=== PATIENT | female | born 1975 | race Caucasian/White ===

== ENCOUNTER 2022-10-18 05:50 | Day surgery (SDC) | payer MEDICAID ==
[~2022-10-18] VITALS: Ht 172.7 cm; Wt 97.5 kg
[2022-10-18] MEDS ORDERED: fentaNYL CITRATE/PF 100 MCG/2 ML AMP ONE ×2 (07:46→08:10)
[2022-10-18] MEDS ORDERED: MIDAZOLAM HCL 5 MG/5 ML VIAL ONE ×2 (07:47→08:10)
[2022-10-18] MEDS ORDERED: SIMETHICONE 40 MG/0.6 ML ML ONE (07:51)
[2022-10-18] MEDS ORDERED: DIPHENHYDRAMINE INJ 50 MG/ML VIAL ONE (08:10)
[2022-10-18 15:12] VITALS: BP_SYST 133
== END 2022-10-18 09:30 | disposition home or self-care (01) ==
LOC: SDS 05:50 → SMU 05:50 → SDS 09:30
PROVIDERS: ATTEND Internal Medicine
DX: R19.4 Change in bowel habit (principal); R14.0 Abdominal distension (gaseous); D12.2 Benign neoplasm of ascending colon; K29.50 Unspecified chronic gastritis without bleeding; K64.8 Other hemorrhoids; K20.90 Esophagitis, unspecified without bleeding; I10 Essential (primary) hypertension; Z79.899 Other long term (current) drug therapy; Z87.891 Personal history of nicotine dependence; Z20.822 Contact with and (suspected) exposure to COVID-19
CPT/HCPCS: 36415 ×2; 45385; 43239; 87426; 87081; 88305; 88312; 88313; 99152; 99153; U0003; G0378; J1200; J2250; J3010